=== PATIENT | male | born 1995 | race American Indian/Alaskan Native ===

== ENCOUNTER 2016-09-11 19:49 | Emergency (ER) | payer SELFPAY ==
[2016-09-11 20:21] VITALS: BP 115/70
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
== END 2016-09-11 22:54 | disposition left against medical advice (07) ==
LOC: ED 19:49
DX: S16.1XXA Strain of muscle, fascia and tendon at neck level, initial encounter (principal); S00.93XA Contusion of unspecified part of head, initial encounter; S00.83XA Contusion of other part of head, initial encounter; V49.59XA Passenger injured in collision with other motor vehicles in traffic accident, initial encounter; Y93.9 Activity, unspecified; Y92.9 Unspecified place or not applicable; Y99.9 Unspecified external cause status
CPT/HCPCS: 70450; 70486; 72125; 99283

== ENCOUNTER 2018-08-05 09:33 | Emergency (ER) | payer OTHER ==
[2018-08-05 09:59] VITALS: BP 134/89
--- NOTE | 2018-08-05 12:24 | Emergency Department Report ---
ED Male HPI - General Chief complaint: Urogenital-Male Stated complaint: PENIS DISCHARGE Time Seen by Provider: 08/05/18 12:21 Source: patient Mode of arrival: Ambulatory Limitations: No Limitations - History of Present Illness Initial comments: 23-year-old -[place] male presents to the emergency room for white penile discharge for 3-4 hours. Patient reports he's been having unprotected intercourse. He denies abdominal pain fever chills. Patient denies any dysuria. Complaint: penile discharge -: hour(s) (2-3 hours) Location: penis - Related Data Previous Rx's Medication Instructions Recorded Last Taken Type Ibuprofen [Ibu] 800 mg PO Q8H PRN #20 tablet 07/06/18 Unknown Rx methOCARBAMOL [Robaxin TAB] 500 mg PO Q6H PRN #14 tablet 07/06/18 Unknown Rx Azithromycin [Zithromax Tri-Robert] 1,000 mg PO ONCE #2 tablet 08/05/18 Unknown Rx Allergies Allergy/AdvReac Type Severity Reaction Status Date / Time No Known Allergies Allergy Verified 08/05/18 09:34 ED Review of Systems ROS: Stated complaint: PENIS DISCHARGE Other details as noted in HPI Comment: All other systems reviewed and negative Constitutional: denies: chills, fever Gastrointestinal: denies: abdominal pain Genitourinary: discharge. denies: dysuria, frequency, hematuria ED Past Medical Hx - Past Medical History Previous Medical History?: No - Surgical History Past Surgical History?: No - Social History Smoking Status: Never Smoker Substance Use Type: None - Medications Home Medications: Home Medications Medication Instructions Recorded Confirmed Last Taken Type Ibuprofen [Ibu] 800 mg PO Q8H PRN #20 tablet 07/06/18 Unknown Rx methOCARBAMOL [Robaxin TAB] 500 mg PO Q6H PRN #14 tablet 07/06/18 Unknown Rx Azithromycin [Zithromax Tri-Robert] 1,000 mg PO ONCE #2 tablet 08/05/18 Unknown Rx ED Physical Exam - General Limitations: No Limitations General appearance: alert, in no apparent distress - Head Head exam: Present: atraumatic, normocephalic - Eye Eye exam: Present: normal appearance - ENT ENT exam: Present: mucous membranes moist ED Course Vital Signs 08/05/18 09:58 Temperature 98.2 F Pulse Rate 70 Respiratory 16 Rate Blood Pressure 134/89 O2 Sat by Pulse 100 Oximetry Critical care attestation.: If time is entered above; I have spent that time in minutes in the direct care of this critically ill patient, excluding procedure time. ED Disposition Clinical Impression: Concern about STD in male without diagnosis Disposition: DC-01 TO HOME OR SELFCARE Is pt being admited?: No Does the pt Need Aspirin: No Condition: Stable Instructions: Safe Sex (ED), Sexually Transmitted Diseases (ED) Additional Instructions: Completes her antibiotics as prescribed. Follow up at the health department for further STD checks for syphilis, herpes, hepatitis, HIV. Prescriptions: Azithromycin [Zithromax Tri-Robert] 1,000 mg PO ONCE #2 tablet Referrals: [facility] [Other] - 3-5 Days [facility] [Outside] - 3-5 Days [facility] [Outside] - 3-5 Days [facility] [Outside] - 3-5 Days [facility] [Outside] - 3-5 Days
[2018-08-05] MEDS ORDERED: XYLOCAINE 1% MPF 5 mL INFILTRATI ONE (12:38)
[2018-08-05] MEDS ORDERED: ROCEPHIN IM ONE (12:38)
== END 2018-08-05 13:13 | disposition home or self-care (01) ==
LOC: ED 09:33
DX: R36.9 Urethral discharge, unspecified (principal); Z71.1 Person with feared health complaint in whom no diagnosis is made
CPT/HCPCS: 87591; 96372; 99281; J0696

== ENCOUNTER 2018-10-29 06:16 | Emergency (ER) | payer SELFPAY ==
[2018-10-29 06:52] LABS: Bilirubin,Urine NEG (Negative); Blood,Urine NEG (Negative); Color,Urine Amber (Yellow); Mucus,Urine 3+ /HPF; Urobilinogen,Urine < 2.0 mg/dL (<2.0)
[2018-10-29 08:15] LABS: Basophils % (Auto) 0.3 % (0.0-1.8); Eosinophils # (Auto) 0.1 K/mm3 (0.0-0.4); Hematocrit 48.3 % (35.5-45.6); Hemoglobin 16.6 gm/dl (11.8-15.2); Lymphocytes # (Auto) 1.5 K/mm3 (1.2-5.4); Lymphocytes % (Auto) 15.4 % (13.4-35.0); Mean Corpuscular HGB Conc 34 % (32-34); Mean Corpuscular Volume 96 fl (84-94); Monocytes # (Auto) 0.5 K/mm3 (0.0-0.8); Monocytes % (Auto) 5.1 % (0.0-7.3); Platelet Count 233 K/mm3 (140-440); Red Blood Count 5.03 M/mm3 (3.65-5.03); Red Cell Distribution Width 12.8 % (13.2-15.2)
[2018-10-29 08:36] LABS: Alanine Aminotransferase 13 units/L (7-56); Albumin 5.1 g/dL (3.9-5); BUN/Creatinine Ratio 11; Blood Urea Nitrogen 10 mg/dL (9-20); Calcium 10.4 mg/dL (8.4-10.2); Hemolysis Index 21
[2018-10-29] MEDS ORDERED: ZOFRAN IV STA (08:57)
[2018-10-29] MEDS ORDERED: NACL 0.9% 1000 ML 1,000 ML IV ONE (08:57)
[2018-10-29 12:20] VITALS: BP 124/72
== END 2018-10-29 11:54 | disposition left against medical advice (07) ==
LOC: ED 06:16
DX: R10.84 Generalized abdominal pain (principal); Z53.21 Procedure and treatment not carried out due to patient leaving prior to being seen by health care provider
CPT/HCPCS: 36415; 80053; 81001; 85025; 87086; J2405; J7030; 96361; 96374